=== PATIENT | female | born 1990 | race Caucasian/White ===

== ENCOUNTER 2019-09-04 22:38 | Emergency (ER) | payer OTHER ==
[~2019-09-04] VITALS: Ht 172.7 cm; Wt 77.1 kg
--- NOTE | 2019-09-04 23:18 | NUR ---
Patient discharged to home in stable conditon. Written and verbal after care instructions given. Patient verbalizes understanding of instructions. AMBULATORY W/ ANTALGIC GAIT SURGICAL SHOE FITTED BY EXTRACT PULLER TO R FOOT
[2019-09-04 23:19] VITALS: BP 128/70
== END 2019-09-04 23:19 | disposition home or self-care (01) ==
LOC: ER 22:43
DX: S92.504A Nondisplaced unspecified fracture of right lesser toe(s), initial encounter for closed fracture (principal); W51.XXXA Accidental striking against or bumped into by another person, initial encounter; Y93.89 Activity, other specified; Y92.89 Other specified places as the place of occurrence of the external cause; Y99.8 Other external cause status
CPT/HCPCS: 73630; A4663

== ENCOUNTER 2019-09-28 21:35 | Emergency (ER) | payer OTHER ==
[~2019-09-28] VITALS: Ht 170.2 cm; Wt 73.9 kg
--- NOTE | 2019-09-28 21:50 | NUR ---
Dr. Asencio at bedside for MSE.
--- NOTE | 2019-09-28 22:21 | NUR ---
xray at bedside.
[2019-09-28] MEDS ORDERED: CEFTRIAXONE 1 G VIAL ONE (22:39)
[2019-09-28] MEDS ORDERED: LIDOCAINE HCL 1% 20 ML VIAL ONE (22:40)
[2019-09-28] MEDS ORDERED: CEFTRIAXONE 1 G VIAL IM ONE (22:45)
[2019-09-28 22:52] VITALS: BP 100/68
--- NOTE | 2019-09-28 22:52 | NUR ---
Patient discharged to home in stable conditon. Written and verbal after care instructions given. Patient verbalizes understanding of instructions. Pt ambulated out of ER with steady gait, no acute signs of distress, VSS, all belongings taken.
== END 2019-09-28 22:53 | disposition home or self-care (01) ==
LOC: ER 21:38
DX: J06.9 Acute upper respiratory infection, unspecified (principal); Z88.0 Allergy status to penicillin; Z91.018 Allergy to other foods
CPT/HCPCS: 71045; 87400; 96372; 99284; J0696; J3490; A4663

== ENCOUNTER 2020-03-17 00:05 | Emergency (ER) | payer OTHER ==
[~2020-03-17] VITALS: Ht 170.2 cm; Wt 63.5 kg
[2020-03-17 01:09] VITALS: BP 128/78
--- NOTE | 2020-03-17 01:09 | NUR ---
Patient discharged to home in stable condition. Written and verbal after care instructions given. Patient verbalizes understanding of instructions. Stressed follow up or return to ER for worsening s/s.
== END 2020-03-17 01:10 | disposition home or self-care (01) ==
LOC: ER 00:12
DX: S92.524A Nondisplaced fracture of middle phalanx of right lesser toe(s), initial encounter for closed fracture (principal); W50.0XXA Accidental hit or strike by another person, initial encounter; Y92.89 Other specified places as the place of occurrence of the external cause
CPT/HCPCS: 73660; A4663

== ENCOUNTER 2020-06-11 19:55 | Emergency (ER) | payer OTHER ==
[~2020-06-11] VITALS: Ht 170.2 cm; Wt 70.3 kg
--- NOTE | 2020-06-11 20:15 | NUR ---
SEEN BY DR BOLES AT THE BEDSIDE , PATIENT IS AWAKE AND ORIENTED , ABLE TTO FOLLOW COMMAND, AFFECTED SITE NO SWELLING , NO BLEEDING NOTED .
[2020-06-11] MEDS ORDERED: HEPATITIS B IMMUNE GLOBULIN 5 ML VIAL IM ONE ×2 (20:30→20:42)
[2020-06-11] MEDS ORDERED: LAMIVUDINE/ZIDOVUDIN 150-300MG TABLET PO ONE (20:30)
[2020-06-11] MEDS ORDERED: LAMIVUDINE/ZIDOVUDIN 150-300MG TABLET ONE (20:31)
--- NOTE | 2020-06-11 20:43 | NUR ---
AFFECTED SITE IS CLEANSED WITH BETADINE ,PAT DRY
[2020-06-11] MEDS ORDERED: CEphaleXIN 500 MG CAPSULE PO ONE (20:45)
[2020-06-11 20:49] LABS: BASOPHILS % (AUTO) 0.6 % (0.0-2.0); EOSINOPHILS # (AUTO) 0.1 K/uL (0.0-0.7); EOSINOPHILS % (AUTO) 3.7 % (0.0-7.0); HEMOGLOBIN 12.8 g/dL (10.9-14.3); LYMPHOCYTES # (AUTO) 1.8 K/uL (20.0-40.0); LYMPHOCYTES % (AUTO) 45.9 % (20.5-51.5); MEAN CORPUSCULAR HEMOGLOBIN 29.2 uug (24.7-32.8); MEAN CORPUSCULAR HGB CONC 34 g/dL (32.3-35.6); MEAN CORPUSCULAR VOLUME 86.6 fL (75.5-95.3); MONOCYTES # (AUTO) 0.3 K/uL (2.0-10.0); MONOCYTES % (AUTO) 6.9 % (0.0-11.0); NEUTROPHILS # (AUTO) 1.7 K/uL (1.8-8.9); NEUTROPHILS % (AUTO) 42.9 % (38.5-71.5); PLATELET COUNT (AUTO) 228 K/uL (179-408); RED BLOOD CELL COUNT(AUTO) 4.39 MIL/uL (3.63-4.92)
[2020-06-11] MEDS ORDERED: CEphaleXIN 500 MG CAPSULE ONE (20:50)
[2020-06-11 21:00] LABS: BILIRUBIN,TOTAL 0.9 mg/dL (0.2-1.0); CREATININE 0.7 mg/dL (0.6-1.3); POTASSIUM 4.2 mmol/L (3.5-5.1); TOTAL PROTEIN, SERUM 7.5 g/dL (6.4-8.2)
[2020-06-11 21:02] LABS: *BILIRUBIN,URIN NEGATIVE (NEGATIVE); *BLOOD, URINE NEGATIVE (NEGATIVE); *CLARITY,URINE CLEAR (CLEAR); *COLOR,URINE YELLOW (YELLOW); *KETONES,URINE NEGATIVE (NEGATIVE); *UROBILINOGEN,URINE 0.2 E.U./dl (NORMAL); LEUKOCYTE ESTERASE ,URINE NEGATIVE (NEGATIVE); NITRITE, URINE NEGATIVE (NEGATIVE); UGLUCOSE NEGATIVE (NEGATIVE)
--- NOTE | 2020-06-11 21:03 | NUR ---
DR BOLES AT BEDSIDE EXPLAINING ALL MEDICATIONS AND PLAN OF CARE TO SEE PCP , DISCHARGE PRESCRIPTIONS GIVEN AND EXPLAINED AND VERBALIZES UNDERSTANDING
--- NOTE | 2020-06-11 21:15 | NUR ---
PATIENT IS DICHARGE STABLE , AMBULTORY , NO PAIN , WITH PRESCRIPTION GIVEN AND EXPLAINED
[2020-06-11 21:27] LABS: *URINE HCG, QUAL NEGATIVE (NEGATIVE)
[2020-06-13 06:10] LABS: HEPATITIS B SURFACE AB Reactive (.)
== END 2020-06-11 21:23 | disposition home or self-care (01) ==
LOC: ER 19:57
DX: S61.032A Puncture wound without foreign body of left thumb without damage to nail, initial encounter (principal); W26.8XXA Contact with other sharp object(s), not elsewhere classified, initial encounter; Y93.89 Activity, other specified; Y92.830 Public park as the place of occurrence of the external cause; Y99.8 Other external cause status; Z77.21 Contact with and (suspected) exposure to potentially hazardous body fluids; Z88.0 Allergy status to penicillin; Z91.018 Allergy to other foods; L30.9 Dermatitis, unspecified; Z20.828 Contact with and (suspected) exposure to other viral communicable diseases
CPT/HCPCS: 36415; 80053; 81001; 84703; 85025; 86704; 86706; 86803; 87806; 90371; 90471; 90739; 99283; U0003; A4663